=== PATIENT | female | born 1950 | race Caucasian/White ===

== ENCOUNTER → 2018-06-05 | Outpatient (CLI) | payer MEDICARE ==
[~2018-06-05] MED LIST: AMLO2.5T PO; AMLO5TAB2 PO; ASPI-496 PO; ATOR10TA9 PO; BUPR300T49 PO; CALC1TAB72 PO; CEPH750C9 PO; CHOL5000 PO; COLC0.6T37 PO; CYAN50004 PO; DIAZ5TAB4 PO; DIFL5DRO LEFTEYE; ESCI20TA10 PO; FEBU40TA PO; FURO40TA6 PO; GABA300C10 PO; GABA600T2 PO; GABA800T2 PO; HYDR-3307 PO; INSU100C5 SQ-INSULIN; INSU100V8 SQ; LEVO100T5 PO; LEVO88TA4 PO; LISI-170 PO; MULT-224 PO; PRED10TA14 PO; [UNRECOGNIZED DRUG - CODE] PO
== END | disposition home or self-care (01) ==
LOC: CFH 13:47
PROVIDERS: ATTEND Licensed Practical Nurse
DX: Z12.31 Encounter for screening mammogram for malignant neoplasm of breast (principal); M81.0 Age-related osteoporosis without current pathological fracture; R92.1 Mammographic calcification found on diagnostic imaging of breast; N95.8 Other specified menopausal and perimenopausal disorders
CPT/HCPCS: 77080; 77067

== ENCOUNTER 2019-08-01 14:20 | Inpatient (IN) | payer MEDICARE ==
[2019-07-31 12:46] LABS: ALBUMIN 2.9 g/dL (3.4-5.0); CHLORIDE 105 mmol/L (98-107)
[2019-07-31 12:55] LABS: ALANINE AMINOTRANSFERASE 34 U/L (12-78); ALKALINE PHOSPHATASE 234 U/L (45-117); ANION GAP 7 mmol/L (5-15); BILIRUBIN,TOTAL 0.3 mg/dL (0.2-1.0); CALCIUM 8.8 mg/dL (8.5-10.1); TOTAL PROTEIN 6.7 g/dL (6.4-8.2)
[~2019-08-01] VITALS: Ht 162.6 cm; Wt 80.8 kg
[~2019-08-01 14:20] MED LIST changes: +ALLO100T30 PO; +AMLO-150 PO; -AMLO2.5T PO; +AMLO2.5T5 PO; -AMLO5TAB2 PO; +AMLO5TAB4 PO; +ATOR40TA78 PO; +BUPR100T11 PO; +CARV-39 PO; +DULO60CA56 PO; -GABA600T2 PO; +GABA600T7 PO; -GABA800T2 PO; +GABA800T5 PO; +HYDR-3237 PO; -HYDR-3307 PO; +HYDR-36 PO; +LEVO50TA5 PO; +LIRA0.6P2 SC; +LOSA100T14 PO; -MULT-224 PO; +MULT-642 PO; +SPIR25TA5 PO
[2019-08-01 15:09] VITALS: BP 150/77
[2019-08-01] MEDS ORDERED: ONDANSETRON ODT 8 MG PO ONE (15:30)
[2019-08-01] MEDS ORDERED: SODIUM CHLORIDE 0.9% 1,000 ML IV SCH (15:30)
[2019-08-01] MEDS ORDERED: ACETAMINOPHEN 500 MG TABLET PO ONE (15:30)
[2019-08-01] MEDS ORDERED: GABAPENTIN 300 MG CAPSULE PO ONE (15:30)
[2019-08-01] MEDS ORDERED: KETAMINE 10 MG/ML, 20ML ONE (17:22)
[2019-08-01] MEDS ORDERED: MIDAZOLAM 1 MG/ML, 2ML ONE (17:55)
[2019-08-01] MEDS ORDERED: FENTANYL PF 250 MCG/5ML ONE (17:56)
[2019-08-01] MEDS ORDERED: PROPOFOL 10 MG/ML, 50ML ONE (18:14)
[2019-08-01] MEDS ORDERED: PROPOFOL 10 MG/ML, 20ML ONE (18:14)
[2019-08-01] MEDS ORDERED: ROCURONIUM 10MG/ML,5ML ONE (18:14)
[2019-08-01] MEDS ORDERED: CEFAZOLIN 1,000 MG ONE (18:14)
[2019-08-01] MEDS ORDERED: SUCCINYLCHOLINE 20 MG/ML, 10ML ONE (18:14)
[2019-08-01] MEDS ORDERED: hydrALAzine 20 MG/ML, 1ML IV PRN (19:00)
[2019-08-01] MEDS ORDERED: LABETALOL 5MG/ML, 20ML IV PRN (19:00)
[2019-08-01] MEDS ORDERED: KETOROLAC 30 MG/1 ML IV PRN (19:00)
[2019-08-01] MEDS ORDERED: HYDROmorphone 1 MG/ML, 1ML INJ IV PRN (19:00)
[2019-08-01] MEDS ORDERED: OXYcodone 5 MG/5 ML ORAL.SOL UDC PO PRN ×2 (19:00→23:00)
[2019-08-01] MEDS ORDERED: ALBUTEROL SULFATE 2.5 MG/3 ML NPPB PRN (19:00)
[2019-08-01] MEDS ORDERED: PROMETHAZINE 25 MG/ML, 1ML IV PRN (19:00)
[2019-08-01] MEDS ORDERED: METOCLOPRAMIDE 5 MG/ML, 2ML IV PRN (19:00)
[2019-08-01] MEDS ORDERED: MEPERIDINE/PF 25MG/0.5ML IVPush PRN (19:00)
[2019-08-01] MEDS ORDERED: FENTANYL PF 100 MCG/2ML IV PRN (19:00)
[2019-08-01] MEDS ORDERED: ONDANSETRON 2MG/ML, 2ML IVPush PRN (19:00)
[2019-08-01] MEDS ORDERED: HYDROmorphone 2 MG/ML, 1ML ONE (21:31)
[2019-08-01] MEDS ORDERED: FENTANYL PF 100 MCG/2ML ONE (21:31)
[2019-08-01] MEDS ORDERED: OXYcodone 5 MG/5 ML ORAL.SOL UDC ONE (21:31)
[2019-08-01 22:47] VITALS: BP 151/67
[2019-08-01] MEDS ORDERED: ONDANSETRON 2MG/ML, 2ML IV PRN (23:00)
[2019-08-01] MEDS ORDERED: HYDROmorphone 2 MG/ML, 1ML IVPush PRN (23:00)
[2019-08-01] MEDS ORDERED: SENNA/DOCUSATE TABLET PO PRN (23:00)
[2019-08-01] MEDS ORDERED: PROMETHAZINE 25 MG/ML, 1ML IM PRN (23:00)
[2019-08-02 00:42] VITALS: BP 122/68
[2019-08-02] MEDS: CEFAZOLIN PMX 2GM/50ML 50 ML IVPB SCH ×2 (02:25→10:25)
[2019-08-02] MEDS: HYDROcodone/APAP 5/325 TABLET PO PRN ×4 (02:42→17:35)
[2019-08-02 04:15] VITALS: BP 126/68
[2019-08-02] MEDS ORDERED: ENOXAPARIN 40 MG/0.4 ML SQ SCH (06:00)
[2019-08-02 07:40] VITALS: BP 128/63
[2019-08-02] MEDS: INSULIN REGULAR 100 UNITS/ML, 3ML VIAL SQ-INSULIN SCH ×3 (08:09→17:35)
[2019-08-02] MEDS ORDERED: SODIUM CHLORIDE FLUSH 10ML SYR IVF SCH (09:00)
[2019-08-02] MEDS ORDERED: DOCUSATE 100 MG CAPSULE PO SCH (09:00)
[2019-08-02 12:20] VITALS: BP 128/62
[2019-08-02 19:29] VITALS: BP 127/70
[2019-08-02] MEDS ORDERED: INSULIN GLARGINE 100 UNITS/ML, PEN SQ-INSULIN SCH (21:00)
[2019-08-08] MEDS ORDERED: LEVO50TA5 PO (22:39)
[2019-08-13] MEDS ORDERED: AMLO5TAB4 PO (09:47)
[2019-08-13] MEDS ORDERED: INSU100V8 SQ (09:47)
[2019-08-13] MEDS ORDERED: CARV3.1212 PO (09:47)
[2019-08-13] MEDS ORDERED: HYDR-3342 PO (09:47)
[2019-08-13] MEDS ORDERED: ACET325T26 PO (09:47)
[2019-08-13] MEDS ORDERED: BUPR100T8 PO (11:30)
== END 2019-08-02 20:19 | disposition home or self-care (01) | DRG 981 ==
LOC: ORIP 14:20 → 4NE 16:55
PROVIDERS: ADMIT Orthopaedic Surgery; ATTEND Orthopaedic Surgery
PROC: 0L8N4ZZ Division of Right Lower Leg Tendon, Percutaneous Endoscopic Approach (ICD-10-PCS; 2019-08-01)
PROC: 3E0T3BZ Introduction of Anesthetic Agent into Peripheral Nerves and Plexi, Percutaneous Approach (ICD-10-PCS; 2019-08-01)
PROC: 0QBL0ZX Excision of Right Tarsal, Open Approach, Diagnostic (ICD-10-PCS; principal; 2019-08-01 17:00)
PROC: 0YQM0ZZ Repair Right Foot, Open Approach (ICD-10-PCS; 2019-08-01 17:00)
DX: E11.610 Type 2 diabetes mellitus with diabetic neuropathic arthropathy (principal); E11.00 Type 2 diabetes mellitus with hyperosmolarity without nonketotic hyperglycemic-hyperosmolar coma (NKHHC); L97.416 Non-pressure chronic ulcer of right heel and midfoot with bone involvement without evidence of necrosis; E11.621 Type 2 diabetes mellitus with foot ulcer; M24.574 Contracture, right foot; S92.221A Displaced fracture of lateral cuneiform of right foot, initial encounter for closed fracture; I10 Essential (primary) hypertension; E11.65 Type 2 diabetes mellitus with hyperglycemia
CPT/HCPCS: 36415; 76000; 80053; 82947; 82962; 88305; 93005; C1713; G0378; J0690; J1650; J1815; J2250; J2704; J3010; Q0162; C1762; J0330; J7030

== ENCOUNTER → 2020-08-16 | Outpatient (CLI) | payer MEDICARE ==
[~2020-08-16] MED LIST changes: +ACET325T26 PO; +BUPR100T8 PO; -CALC1TAB72 PO; +CALC1TAB74 PO; +CARV3.1212 PO; +HYDR-3246 PO; +HYDR-3342 PO; -HYDR-36 PO
== END | disposition home or self-care (01) ==
LOC: WOUND 10:28
PROVIDERS: ATTEND Internal Medicine
DX: E11.622 Type 2 diabetes mellitus with other skin ulcer (principal); K28.9 Gastrojejunal ulcer, unspecified as acute or chronic, without hemorrhage or perforation; E78.5 Hyperlipidemia, unspecified; E11.40 Type 2 diabetes mellitus with diabetic neuropathy, unspecified; I13.0 Hypertensive heart and chronic kidney disease with heart failure and stage 1 through stage 4 chronic kidney disease, or unspecified chronic kidney disease; E11.22 Type 2 diabetes mellitus with diabetic chronic kidney disease; N18.30 Chronic kidney disease, stage 3 unspecified; I50.9 Heart failure, unspecified; E03.9 Hypothyroidism, unspecified; D50.9 Iron deficiency anemia, unspecified; E66.9 Obesity, unspecified; F32.9 Major depressive disorder, single episode, unspecified; M00.9 Pyogenic arthritis, unspecified; G47.30 Sleep apnea, unspecified; E11.610 Type 2 diabetes mellitus with diabetic neuropathic arthropathy; E11.42 Type 2 diabetes mellitus with diabetic polyneuropathy; I48.91 Unspecified atrial fibrillation; E11.00 Type 2 diabetes mellitus with hyperosmolarity without nonketotic hyperglycemic-hyperosmolar coma (NKHHC); M24.574 Contracture, right foot; Z93.3 Colostomy status; Z68.30 Body mass index [BMI] 30.0-30.9, adult; Z86.14 Personal history of Methicillin resistant Staphylococcus aureus infection; Z88.2 Allergy status to sulfonamides; Z88.8 Allergy status to other drugs, medicaments and biological substances; Z79.4 Long term (current) use of insulin; Z79.82 Long term (current) use of aspirin
CPT/HCPCS: G0463

== ENCOUNTER 2020-10-11 12:42 | Outpatient (CLI) | payer MEDICARE | END 2020-10-11 23:59 | disposition home or self-care (01) | LOC: WOUND 12:42 | PROVIDERS: ATTEND Internal Medicine | DX: Z43.3 Encounter for attention to colostomy (principal); E78.5 Hyperlipidemia, unspecified; E11.40 Type 2 diabetes mellitus with diabetic neuropathy, unspecified; I13.0 Hypertensive heart and chronic kidney disease with heart failure and stage 1 through stage 4 chronic kidney disease, or unspecified chronic kidney disease; E11.22 Type 2 diabetes mellitus with diabetic chronic kidney disease; N18.30 Chronic kidney disease, stage 3 unspecified; I50.9 Heart failure, unspecified; E03.9 Hypothyroidism, unspecified | CPT/HCPCS: 17250; G0463 ==